=== PATIENT | female | born 1985 ===

== ENCOUNTER 2017-07-02 11:59 | Emergency (ER) | payer BC, MEDICAID ==
[2017-07-02 12:11] VITALS: RESP 18; TEMP 98.2; O2SAT 99; BMI 29.2
--- NOTE | 2017-07-02 13:18 | ED PDOC ---
Arrival/HPI - General Chief Complaint: Chest Pain Time Seen by Provider: 07/02/17 12:10 Historian: Patient - History of Present Illness Narrative History of Present Illness (Text): 07/02/17 13:13 32yo female with no PMHx who present with complaint of left sided sternal wall pain with palpitation that lasted for minutes at 1100AM. She denies any previous symptom. States the chest pain is currently resolved. Also report suprapubic abdominal pain that started while she was in ED. She denies SOB, diaphoresis, cough, fever, chills, nausea, vomiting, urinary symptoms, ripping/ tearing upper back pain, recent travel, OCP use, recent surgery, LE edema, calf pain, diaphoresis, any other complaint. Past Medical History - Provider Review Nursing Documentation Reviewed: Yes - Infectious Disease Hx of Infectious Diseases: None - Pulmonary Hx Asthma: Yes - Psychiatric Hx Substance Use: No - Surgical History Hx Appendectomy: Yes Hx Section: Yes (x3) Hx Gastric Bypass Surgery: Yes Hx Orthopedic Surgery: Yes (R knee sx) - Anesthesia Hx Anesthesia: Yes Hx Anesthesia Reactions: No Hx Malignant Hyperthermia: No Family/Social History - Physician Review Nursing Documentation Reviewed: Yes Family/Social History: Unknown Family HX Smoking Status: Never Smoked Hx Alcohol Use: No Hx Substance Use: No Allergies/Home Meds Allergies/Adverse Reactions: Allergies No Known Allergies Allergy (Verified 07/02/17 12:31) Review of Systems - Physician Review All systems were reviewed & negative as marked: Yes - Review of Systems Constitutional: Normal Eyes: Normal ENT: Normal Respiratory: Normal Cardiovascular: Normal Gastrointestinal: Abdominal Pain. absent: Constipation, Diarrhea, Nausea, Vomiting, Hematemesis Genitourinary Female: Normal Musculoskeletal: Normal Skin: Normal Neurological: Normal Endocrine: Normal Hemo/Lymphatic: Normal Psychiatric: Normal Physical Exam Vital Signs Reviewed: Yes Vital Signs Temp Pulse Resp BP Pulse Ox 07/02/17 15:30 69 18 116/73 99 07/02/17 13:13 75 18 118/71 99 07/02/17 12:10 98.2 F 77 18 120/67 99 Temperature: Afebrile Blood Pressure: Normal Pulse: Regular Respiratory Rate: Normal Appearance: Positive for: Well-Appearing, Non-Toxic, Comfortable Pain Distress: None Mental Status: Positive for: Alert and Oriented X 3 - Systems Exam Head: Present: Atraumatic, Normocephalic Pupils: Present: PERRL Extroacular Muscles: Present: EOMI Conjunctiva: Present: Normal Mouth: Present: Moist Mucous Membranes Neck: Present: Normal Range of Motion Respiratory/Chest: Present: Clear to Auscultation, Good Air Exchange. No: Respiratory Distress, Accessory Muscle Use, Wheezes, Decreased Breath Sounds, Rales, Retracting, Rhonchi, Tachypneic Cardiovascular: Present: Regular Rate and Rhythm, Normal S1, S2. No: Murmurs Abdomen: Present: Tenderness (Suprapubic tenderness), Normal Bowel Sounds, Other (Soft). No: Distention, Peritoneal Signs, Rebound, Guarding, McBurney's Point Tender, Rovsing's Sign Present Back: Present: Normal Inspection Upper Extremity: Present: Normal Inspection. No: Cyanosis, Edema Lower Extremity: Present: Normal Inspection. No: Edema Neurological: Present: GCS=15, CN II-XII Intact, Speech Normal Skin: Present: Warm, Dry, Normal Color. No: Rashes Psychiatric: Present: Alert, Oriented x 3, Normal Insight, Normal Concentration Medical Decision Making ED Course and Treatment: 07/02/17 20:27 PT presented with chest pain that lasted for minutes. She was PERC negative and d dimer was negative. PT however reported familial cardiac risk factors. [place] negative CE was done in ED and CXR NAD. Other labs was negative. EKG NSR @81bpm. On re evaluation in ED pt continue to be comfortable notes that both her suprapubic and chest pain resolved. Result was DW the pt and she was strongly advised to f/u with a Stitch Bonding Machine Operator for further outpt work up. - Lab Interpretations Lab Results: 07/02/17 13:15 07/02/17 13:15 Lab Results 07/02/17 16:10: Lactate Dehydrogenase 367, Total Creatine Kinase 34 L, Troponin I < 0.01 07/02/17 13:51: Urine Color Yellow, Urine Appearance Clear, Urine pH 7.0, Ur Specific Mayo 1.020, Urine Protein Negative, Urine Glucose (UA) Negative, Urine Ketones Negative, Urine Blood Negative, Urine Nitrate Negative, Urine Bilirubin Negative, Urine Urobilinogen 1.0 H, Ur Leukocyte Esterase Negative 07/02/17 13:15: PT 11.4, INR 0.99, APTT 27.7, D-Dimer, Quantitative 229 07/02/17 13:15: Sodium 138, Potassium 3.7, Chloride 103, Carbon Dioxide 27, Anion Gap 12, BUN 11, Creatinine 0.6 L, Est GFR ( Amer) > 60, Est GFR ( Non-Af Amer) > 60, Random Glucose 93, Calcium 9.9, Magnesium 1.9, Total Bilirubin 0.9, AST 20, ALT 24, Alkaline Phosphatase 42, Lactate Dehydrogenase 381, Total Creatine Kinase 40, Troponin I < 0.01, NT-Pro-B Natriuret Pep 30.6, Total Protein 6.9, Albumin 3.9, Globulin 3.0, Albumin/Globulin Ratio 1.3 07/02/17 13:15: WBC 6.4, RBC 4.82, Hgb 13.3, Hct 40.4, MCV 83.8, MCH 27.6, MCHC 32.9, RDW 13.6, Plt Count 223, MPV 10.7, Gran % 56.0, Lymph % (Auto) 35.6 H, [place] % (Auto) 6.5 H, Eos % (Auto) 1.6, Baso % (Auto) 0.3, Gran # 3.61, Lymph # ( Auto) 2.3, [place] # (Auto) 0.4, Eos # (Auto) 0.1, Baso # (Auto) 0.02 - RAD Interpretation Radiology Orders: 07/02/17 12:32 CHEST PORTABLE [RAD] Stat - Medication Orders Current Medication Orders: Discontinued Medications Aspirin (Aspirin) 325 mg PO STAT STA Stop: 07/02/17 12:32 Last Admin: 07/02/17 13:18 Dose: 325 mg Disposition/Present on Arrival - Present on Arrival Any Indicators Present on Arrival: No History of DVT/PE: No History of Uncontrolled Diabetes: No Urinary Catheter: No History of Decub. Ulcer: No History Surgical Site Infection Following: None - Disposition Have Diagnosis and Disposition been Completed?: Yes Diagnosis: Chest pain, Abdominal pain Disposition: HOME/ ROUTINE Disposition Time: 16:55 Patient Plan: Discharge Condition: STABLE Discharge Instructions (ExitCare): Chest Pain (ED) Additional Instructions: follow up with your Doctor/Stitch Bonding Machine Operator Return to ED for any new or worsening symptoms Referrals: Barber Rodriguez, [Primary Care Provider] - Follow up with primary Jose Peter MD [Staff Provider] - Follow up with primary Forms: [employer] (Slovenian)
[2017-07-02 13:31] LABS: BASO # 0.02 K/mm3 (0.0-2.0); BASO % 0.3 % (0.0-3.0); EOS # 0.1 (0.0-0.7); EOS % 1.6 % (1.5-5.0); GRAN # 3.61 (1.4-6.5); HEMOGLOBIN 13.3 g/dL (12.0-16.0); LYMPH # 2.3 (1.2-3.4); LYMPH % 35.6 % (22.0-35.0); MEAN CELL VOLUME 83.8 fl (80.0-105.0); MEAN CORPUSCULAR HEMOGLOBIN 27.6 pg (25.0-35.0); MEAN CORPUSCULAR HGB CONC 32.9 g/dl (31.0-37.0); MEAN PLATELET VOLUME 10.7 fl (7.0-11.0); MONO # 0.4 (0.1-0.6); MONO % 6.5 % (1.0-6.0); RBC 4.82 10^6/uL (3.5-6.1); RED CELL DISTRIBUTION WIDTH 13.6 % (11.5-14.5); WHITE BLOOD COUNT 6.4 10^3/ul (4.5-11.0)
[2017-07-02 13:41] LABS: ALB/GLOB RATIO 1.3 (1.1-1.8); ALBUMIN 3.9 g/dL (3.0-4.8); ALT/SGPT 24 U/L (7-56); AST/SGOT 20 U/L (14-36); BLOOD UREA NITROGEN 11 mg/dL (7-21); CALCIUM 9.9 mg/dL (8.4-10.5); GFR AFRICAN-AMERICAN > 60; GFR NON-AFRICAN AMERICAN > 60; MAGNESIUM 1.9 mg/dL (1.7-2.2)
[2017-07-02 13:52] LABS: B-TYPE NATRIURETIC PEPTIDE 30.6 pg/mL (0-450); TROPONIN I < 0.01 ng/mL
[2017-07-02 13:53] LABS: INR 0.99 (0.93-1.08); PARTIAL THROMBOPLASTIN TIME 27.7 Seconds (25.1-36.5); PROTHROMBIN TIME 11.4 SECONDS (9.4-12.5)
[2017-07-02 14:14] LABS: URINE BILIRUBIN NEGATIVE (NEGATIVE); URINE BLOOD NEGATIVE (NEGATIVE); URINE GLUCOSE (UA) NEGATIVE (NEGATIVE); URINE LEUKOCYTE ESTERASE NEGATIVE Leu/uL (NEGATIVE); URINE NITRATE NEGATIVE (NEGATIVE); URINE PROTEIN NEGATIVE mg/dL (<30 mg/dL)
--- NOTE | 2017-07-02 14:18 | RAD ---
HISTORY: Chest pain COMPARISON: No prior. FINDINGS: LUNGS: The lungs are well inflated and clear. PLEURA: No significant pleural effusion identified, no pneumothorax apparent. CARDIOVASCULAR: Normal. OSSEOUS STRUCTURES: No significant abnormalities. VISUALIZED UPPER ABDOMEN: Normal. OTHER FINDINGS: None. IMPRESSION: No active pulmonary disease.
[2017-07-02 14:19] LABS: URINE APPEARANCE CLEAR (CLEAR); URINE COLOR YELLOW (YELLOW)
[2017-07-02 15:59] VITALS: BP 116/73; PULSE 69
[2017-07-02 16:52] LABS: TROPONIN I < 0.01 ng/mL
--- NOTE | 2017-07-03 09:54 | CARD ---
APPROVED REPORT EKG Measurement Heart [id number] [place] [id number] <Conclusion> Normal sinus rhythm Normal ECG
== END 2017-07-02 17:08 | disposition home or self-care (01) ==
LOC: ED 11:59
DX: R10.9 Unspecified abdominal pain (principal); R07.9 Chest pain, unspecified